=== PATIENT | male | born 1975 | race Caucasian/White ===

== ENCOUNTER 2020-12-02 18:29 | Emergency (ER) | payer OTHER, MEDICARE, MEDICAID, SELFPAY ==
[2020-12-02 19:19] VITALS: BP 131/86; PULSE 92; RESP 18; TEMP 36.4; O2SAT 97; BMI 28.1
--- NOTE | 2020-12-02 19:34 | ED_ITS ---
HPI - Extremity Injury (Lower) General Chief Complaint: Extremity Injury, Lower Stated Complaint: left knee pain and stiffness Time Seen by Provider: 12/02/20 19:34 Source: patient Mode of arrival: ambulatory History of Present Illness HPI Narrative: 45-year-old male with past medical history of left knee meniscal repair presenting to the ED complaining of acute on chronic left knee pain x1 month. Admits wears brace for support. Denies recent/known injury/trauma or fall. Reports pain aggravated with standing/movement. Denies numbness, tingling, weakness, fever, chills complaint: knee injury Related Data Previous Rx's Medication Instructions Recorded acetaminophen 500 mg tablet 500 mg PO Q6H PRN #20 tab 12/02/20 (Tylenol Extra Strength) diclofenac sodium 1 % topical gel 4 g TOPICAL QID PRN #100 g 12/02/20 ketorolac 10 mg tablet 10 mg PO TID PRN 5 Days #15 tab 12/02/20 Allergies Allergy/AdvReac Type Severity Reaction Status Date / Time No Known Allergies Allergy Verified 12/02/20 19:19 Review of Systems Review of Systems: Constitutional: No Fever, No Chills ENT/Mouth: No Ear Pain, No Nasal Congestion, Musculoskeletal: + joint pain, No Myalgias, + Joint Swelling Skin: No Skin Lesions, No rash Neuro: No Weakness, No Numbness, No Paresthesias Yes all other systems are reviewed and are negative FOR[facility]LY [facility] Past Medical History Attestation statement: The following information was validated with the patient. Social History Social History Advance Directives: Yes Advance Directives Information Provided: No Advance Directives on File: No Physical Exam Vital Signs: Vital Signs: Last Vital Signs Temp 97.6 F 12/02/20 19:19 Pulse 92 12/02/20 19:19 Resp 18 12/02/20 19:19 BP 131/86 12/02/20 19:19 Pulse Ox 97 12/02/20 19:19 Body Mass Index 28.1 Const: General: cooperative and healthy appearing Orientation/consciousness: patient oriented x3 Limitations: no limitations HENMT: Head: Yes normal to inspection Ears: hearing grossly normal bilaterally General nose exam: Normal external nose present Face and sinus: Yes normal facial exam Eyes: General: appearance normal, both eyes and all related structures EOM: EOMs intact bilaterally Neck: Neck: Yes normal visual inspection Resp: Effort & Inspection: normal respiratory effort and no respiratory distress Cardio: Rate: regular rate Peripheral pulses: dorsalis pedis present Skin: Rashes: no rashes Wounds: no wounds Neuro: General: patient oriented x3 Gait exam (Neuro): Normal gait present Extrem: Other: Left knee with mild lateral swelling. Tender to palpation. Decreased flexion secondary to pain. No erythema/cellulitis or ecchymosis. Neurovascularly intact distally. No appreciable deformity MDM - Extremity Injury (Lower) MDM Narrative Medical decision making narrative: 45-year-old male with past medical history of left knee meniscal repair presenting to the ED complaining of acute on chronic left knee pain x1 month. On exam VSS, and ED, physical exam as above. Likely ligamental/tendon or meniscal injury. Low concern for fracture/dislocation without known injury/trauma or fall. Discussed with patient he likely needs MRI/orthopedic follow-up for cortisone injections, and should continue wearing the brace for support Discharge Plan Discharge Clinical Impression: Knee pain Patient Disposition: Home, Self-Care Instructions: Knee Pain (ED), Arthralgia (ED) Additional Instructions: Continue to wear knee brace at home for stability/comfort Ketorolac as an anti-inflammatory/pain medication, take with food Diclofenac topical cream will help with pain, apply to painful knee joint In addition take Tylenol Follow-up with orthopedics as needed If symptoms persist or worsen, become unbearable, have weakness with return to the ED Prescriptions: New ketorolac 10 mg tablet 10 mg PO TID PRN (Reason: pain) 5 Days Qty: 15 RF: 0 diclofenac sodium 1 % gel 4 g topical QID PRN (Reason: pain) Qty: 100 RF: 0 acetaminophen [Tylenol Extra Strength] 500 mg tablet 500 mg PO Q6H PRN (Reason: pain or fever) Qty: 20 RF: 0 Referrals: Davy Matt MD [Physician] - 3 days Stand Alone Forms: Work/School Release
[2020-12-02] MEDS: Ketorolac Tromethamine 15 MG/ML VIAL 30 MG IM (19:44)
== END 2020-12-02 20:11 | disposition home or self-care (01) ==
PROVIDERS: Emergency Provider Emergency Medicine; PCP Internal Medicine
DX: M25.562 Pain in left knee (principal)
CPT/HCPCS: 96372; 99283; 99284; J1885